=== PATIENT | female | born 1960 | race African-American/Black ===

== ENCOUNTER → 2018-08-10 | Outpatient (CLI) | payer MEDICAID ==
[~2018-08-10] MED LIST: ASPIRIN E.C. 8181 MG PO; ELIQUIS 5MG PO; FLONASE NASAL S16 GM NS; IPRATROPIUM BROM3 M1 IH; LASIX 20MG TABL20 MG PO; LOPRESSOR 225 MG/TAB PO; MACROBID 1100 MG/CAP PO; PRAVACHOL 20MG20 MG PO; PROAIR HFA0.09 MG/AC IH; PROTONIX 40MG T40 MG PO; PULMICORT180 MCG/Ac IH; ZYRTEC 10MG10 MG PO
== END ==
LOC: ZCOL.LAB 16:05
DX: N39.0 Urinary tract infection, site not specified (principal)

== ENCOUNTER 2018-08-13 18:00 | Inpatient (IN) | payer MEDICAID ==
[~2018-08-13] VITALS: Ht 154.9 cm; Wt 89.5 kg
[2018-08-13] MEDS ORDERED: FLONASE NASAL S16 GM NS (18:07)
[2018-08-13] MEDS ORDERED: MACROBID 1100 MG/CAP PO (18:07)
[2018-08-13] MEDS ORDERED: ZYRTEC 10MG10 MG PO (18:07)
[2018-08-13] MEDS ORDERED: PROTONIX 40MG T40 MG PO (18:08)
[2018-08-13] MEDS ORDERED: PROAIR HFA0.09 MG/AC IH (18:08)
[2018-08-13] MEDS ORDERED: IPRATROPIUM BROM3 M1 IH (18:08)
[2018-08-13] MEDS ORDERED: PULMICORT180 MCG/Ac IH (18:08)
[2018-08-13] MEDS ORDERED: LASIX 20MG TABL20 MG PO (18:09)
[2018-08-13] MEDS ORDERED: ELIQUIS 5MG PO (18:09)
[2018-08-13] MEDS ORDERED: PRAVACHOL 20MG20 MG PO (18:09)
[2018-08-13] MEDS ORDERED: LOPRESSOR 225 MG/TAB PO (18:09)
[2018-08-13] MEDS ORDERED: ASPIRIN E.C. 8181 MG PO (18:09)
[2018-08-13 18:55] LABS: BASO # 0.1 (0.0-0.2); BASO % 0.2 % (0.0-2.0); GRAN # 17.7 (1.4-6.5); GRAN % 87.4 % (42.2-75.2); HEMOGLOBIN 10.4 g/dl (12.5-16.0); LYMPH # 0.7 (1.2-3.4); LYMPH % 3.2 % (20.0-51.0); MEAN CELL VOLUME 83 fl (80.0-100.0); MEAN CORPUSCULAR HEMOGLOBIN 24 pg (27.0-31.0); MEAN CORPUSCULAR HGB CONC 29 g/dl (33.0-37.0); MEAN PLATELET VOLUME 10.5 fl (7.4-10.4); MONO # 1.7 (0.1-0.6); MONO % 8.3 % (1.7-9.3); PLATELET COUNT 349 K/mm3 (130-400); RED BLOOD COUNT 4.36 M/mm3 (4.10-5.30); REDCELL DISTRIBUTION WIDTH-CV 16.2 % (11.5-14.5)
[2018-08-13 18:58] LABS: COLLECTION METHOD CATHETER
[2018-08-13 19:01] LABS: HEMATOCRIT 36.1 % (37.0-47.0)
[2018-08-13 19:05] LABS: ALBUMIN 3.2 gm/dL (3.5-5.0); BILIRUBIN,TOTAL 1.6 mg/dL (0.0-1.0); CALCIUM 8.5 mg/dL (8.4-10.2); CREATININE, serum 0.67 mg/dL (0.52-1.25); POTASSIUM 4.5 mmol/L (3.4-5.0); TOTAL PROTEIN 7.2 gm/dL (6.4-8.2)
[2018-08-13 19:14] LABS: AMORPHOUS CRYSTAL Present /uL; HYALINE CAST >12 /lpf; MUCOUS Present /lpf; PH 5 (5-8); URINE APPEARANCE Cloudy; URINE BACTERIA None Seen /hpf; URINE BILIRUBIN Negative (NEGATIVE); URINE BLOOD Negative (NEGATIVE); URINE COLOR Amber; URINE GLUCOSE Negative (NEGATIVE); URINE KETONE Trace (NEGATIVE); URINE LEUKOCYTE ESTERASE Negative (NEGATIVE); URINE NITRATE Negative (NEGATIVE); URINE PROTEIN(semi-quant) 1+ (NEGATIVE); URINE RBC 0-2 /hpf; URINE UROBILINOGEN >=4.0 mg/dL (NEGATIVE)
--- NOTE | 2018-08-13 23:30 | NUR ---
pt arrived to unit. diaphoretic, reporting feeling hot. pt temp 97.7. pt med rec completed, michaela notified. pt lungs clear. assessment complete. IV flushes well. no needs a this time
[2018-08-14] VITALS (15 sets, daily range): BP systolic 87–132; BP diastolic 28–68; PULSE 73–97; TEMP 93.5–98
--- NOTE | 2018-08-14 05:03 | NUR ---
PT temp rectally 94.5. BP 87/28- Becca, CORE FILER notified. baerhugger, lactic acid, troponin, and warm LR ordered. pt temp now at 95.2 and BP at 108/38. will continue to monitor vitals and temp. no needs at this time. call light inreach
[2018-08-14 07:00] LABS: ARTERIAL BLD GAS O2 SATURATION 95.3 % (92-100); ARTERIAL BLOOD GAS BASE EXCESS 9.4 (-2-2); ARTERIAL BLOOD GAS HCO3 36.9 meq/L (22-26); ARTERIAL BLOOD GAS PO2 89.2 mmHg (80-100); ARTERIAL BLOOD GAS pH 7.35 (7.35-7.45)
--- NOTE | 2018-08-14 07:00 | NUR ---
Report received form EMIL Lucio. PT in bed resting, feeling weak, assisted tobathroom SBA. Will continue to monitor.
[2018-08-14 07:03] LABS: ARTERIAL BLOOD GAS PCO2 68.9 mmHg (35-45)
--- NOTE | 2018-08-14 07:08 | NUR ---
monitoring temp Q1H. and vitals Q30 min. notified NUTRITION SERVICES AIDE with results. Pt is now diaphoretic and reports feeling hot. rectal temp at this time 95.6. bairhugger on, warm blankets on, warm LR running. no needs at this time call light in reach.
--- NOTE | 2018-08-14 07:42 | NUR ---
report given to EMIL Wood
[2018-08-14 08:56] LABS: MEAN CELL VOLUME 85 fl (80.0-100.0); MEAN CORPUSCULAR HGB CONC 28 g/dl (33.0-37.0); MEAN PLATELET VOLUME 10.6 fl (7.4-10.4); PLATELET COUNT 379 K/mm3 (130-400); RED BLOOD COUNT 4.07 M/mm3 (4.10-5.30); REDCELL DISTRIBUTION WIDTH-CV 16.4 % (11.5-14.5)
[2018-08-14 09:05] LABS: HEMATOCRIT 34.4 % (37.0-47.0); HEMOGLOBIN 9.6 g/dl (12.5-16.0); MEAN CORPUSCULAR HEMOGLOBIN 24 pg (27.0-31.0)
[2018-08-14 09:11] LABS: BILIRUBIN,TOTAL 0.8 mg/dL (0.0-1.0); CALCIUM 8.5 mg/dL (8.4-10.2); CREATININE, serum 0.83 mg/dL (0.52-1.25); POTASSIUM 4.4 mmol/L (3.4-5.0); TOTAL PROTEIN 6.8 gm/dL (6.4-8.2)
--- NOTE | 2018-08-14 09:38 | NUR ---
Assessment charted. Pt's temp improved 97.4 rectally at 0800 removed rosaura clydegger at that time and will recheck shortly. BP labile, manual BP was 114/68, will continue to monitor. Pt receivign IVF and antibiotics through IV in [place]. Pt is alert and oriented, SBA d/t weakness and IV pole. PT is concerend about home meds, called and she addressed and I provided per orders. Pt doing well, denies pain. 02 at 3L NC, which is her baseline. Will continue to monitor.
[2018-08-14 09:40] LABS: TSH w REFLEX 0.403 uIU/mL (0.465-4.680)
--- NOTE | 2018-08-14 10:12 | NUR ---
ROLAN met with the patient to discuss a discharge plan. The patient lives in [place] with her daughter, Whit. The patient receives services through [employer] [facility]. The patient reports her daughter Whit is employed through [employer] as her helper. The patient receives her prescriptions from [facility] and reports no difficulties obtaining her medications. The patient plans to return home upon discharge. There are no additional needs at this time.
[2018-08-14 13:55] LABS: ANISOCYTOSIS 1+; BAND 19 % (0-10); LYMPHOCYTE 6 % (20.0-51.0); NEUTROPHILS 71 % (42.0-75.2); PLATELET ESTIMATE INCREASED (NORMAL)
--- NOTE | 2018-08-14 18:23 | NUR ---
Pt rested well today, sleeping off and on this afternoon. Taking PO well. Denies needs, temperature and BP stable, will give bedside shift report to nightshift nurse who will resume care.
--- NOTE | 2018-08-14 21:00 | NUR ---
pt resting in bed A+ox4. no pain no soa. no needs at this time. call light in reach
[2018-08-15] VITALS (8 sets, daily range): BP systolic 108–131; BP diastolic 35–49; PULSE 79–115; TEMP 97.6–100.1
--- NOTE | 2018-08-15 01:06 | NUR ---
assisted pt toilet. walked slow but stable. standby d/t O2 and IV. no needs at this time. call light inreach
--- NOTE | 2018-08-15 07:15 | NUR ---
Pt resting in bed with eyes closed, report received from EMIL Lucio. Will continue to monitor.
--- NOTE | 2018-08-15 07:20 | NUR ---
pt had an uneventful night. no pain. no soa. vitals stable. no needs at this time. call light in reach. report given to EMIL Wood
--- NOTE | 2018-08-15 08:00 | NUR ---
Assessment charted. Pt resting well today, up to bathroom with SBA. Urine yellow and clear. Short of breath but able to ambulate well, o2 at 3L NC per baseline. Fan on for breathing comfort. Eating and drinking well, feels stronger today. IVF to LA/C. Denies needs, will continue to monitor.
[2018-08-15 14:20] LABS: BASO % 0.1 % (0.0-2.0); EOS % 0.1 % (0-4.0); GRAN % 86.2 % (42.2-75.2); LYMPH # 0.7 (1.2-3.4); LYMPH % 4.1 % (20.0-51.0); MEAN CELL VOLUME 88 fl (80.0-100.0); MEAN CORPUSCULAR HGB CONC 27 g/dl (33.0-37.0); MEAN PLATELET VOLUME 10.2 fl (7.4-10.4); MONO # 1.4 (0.1-0.6); MONO % 8.4 % (1.7-9.3); PLATELET COUNT 368 K/mm3 (130-400); RED BLOOD COUNT 3.77 M/mm3 (4.10-5.30); REDCELL DISTRIBUTION WIDTH-CV 16.8 % (11.5-14.5)
[2018-08-15 14:25] LABS: HEMATOCRIT 33.3 % (37.0-47.0); HEMOGLOBIN 8.9 g/dl (12.5-16.0); MEAN CORPUSCULAR HEMOGLOBIN 24 pg (27.0-31.0)
[2018-08-15 14:35] LABS: CALCIUM 8.2 mg/dL (8.4-10.2); CREATININE, serum 0.63 mg/dL (0.52-1.25); POTASSIUM 3.9 mmol/L (3.4-5.0)
--- NOTE | 2018-08-15 17:38 | NUR ---
Pt resting in bed with 02 at 3L NC. Earlier this afternoon, during RT treatment RT concerned for increased work of breathing and decreased saturations on 3L NC. Called Dr. Astudillo and updated, orders received and implemented, pt resting in bed with eyes closed and appears comfortable. Pt prefers to lay on stomach in bed. IV antibiotics infusing. Denies needs, will give bedside shift report to nightshift nurse who will resume care.
--- NOTE | 2018-08-15 20:29 | NUR ---
Assessment complete.patient awake,alert and oriented x3.denies pain or discomfort at this time.breathing even and unlabored.Lung sounds diminished throughout.Oxygen at 3L/nc.IV Antibiotics infusing.patient denies any needs at this time.will continue to monitor.call light in reach
--- NOTE | 2018-08-15 22:22 | NUR ---
Pt resting in bed at this time.denies any needs at this time.Antibiotics infusing.remains in droplet prec for RVP pending.call light in reach
--- NOTE | 2018-08-16 02:02 | NUR ---
pt's linen change d/t incontinence.education provided on using the call light.pt breathing lsbored with exertion.no other concerns voiced at this time.
[2018-08-16 04:52] VITALS: BP 108/51; PULSE 60; TEMP 97.8
[2018-08-16 04:55] VITALS: BP 90/74; PULSE 108; TEMP 99.6
--- NOTE | 2018-08-16 06:27 | NUR ---
PT C/O SOA.RESPIRATORY THERAPY ADMINISTERED TX AND PATIENT REPORTS FEELING BETTER.PATIENT REMAINS TACHYCARDIC IN THE 100-110s.OXYGEN AT 3L/NC.IVF INFUSING.DENIES ANY OTHER NEEDS AT THIS TIME.CALL LIGHT IN REACH
[2018-08-16 07:48] LABS: MEAN CELL VOLUME 86 fl (80.0-100.0); MEAN CORPUSCULAR HGB CONC 27 g/dl (33.0-37.0); MEAN PLATELET VOLUME 10.3 fl (7.4-10.4); PLATELET COUNT 372 K/mm3 (130-400); RED BLOOD COUNT 3.52 M/mm3 (4.10-5.30); REDCELL DISTRIBUTION WIDTH-CV 17.2 % (11.5-14.5)
[2018-08-16 07:49] LABS: HEMATOCRIT 30.3 % (37.0-47.0); HEMOGLOBIN 8.2 g/dl (12.5-16.0); MEAN CORPUSCULAR HEMOGLOBIN 23 pg (27.0-31.0)
[2018-08-16 07:53] LABS: CALCIUM 7.9 mg/dL (8.4-10.2); CREATININE, serum 0.67 mg/dL (0.52-1.25); POTASSIUM 3.7 mmol/L (3.4-5.0)
[2018-08-16 08:03] VITALS: BP 93/32; PULSE 119; TEMP 100.7; TEMP 98.8
--- NOTE | 2018-08-16 08:30 | NUR ---
Assessment complete. Pt is drowsy but arrousable to voice. Denies having any pain at this time. Breathing is even and unlabored on 3L via NC. Tele on. LF INT flushes easily, remains free of complications, and is CDI. Pt is resting quietly in the bed at this time and she denies further needs. Call light within reach, will continue to monitor.
[2018-08-16 11:36] VITALS: BP 104/32; PULSE 100; TEMP 101.2
[2018-08-16 11:48] LABS: BAND 32 % (0-10); LYMPHOCYTE 5 % (20.0-51.0); NEUTROPHILS 59 % (42.0-75.2)
[2018-08-16 11:49] LABS: ANISOCYTOSIS 1+; HYPOCHROMIA 1+; PLATELET ESTIMATE NORMAL (NORMAL)
[2018-08-16 16:14] VITALS: BP 104/41; PULSE 101; TEMP 100.8
--- NOTE | 2018-08-16 18:27 | NUR ---
Pt has been resting on and off throughout the day. She has remained free of pain. Pt's daughter has been at the bedside; all questions answered. Pt is resting quietly in the bed at this time and she denies further needs. Call light within reach.
[2018-08-16 19:23] LABS: COLLECTION METHOD CATHETER
--- NOTE | 2018-08-16 19:25 | NUR ---
Report given to EMIL Jaramillo.
[2018-08-16 19:35] LABS: AMORPHOUS CRYSTAL Present /uL; PH 5 (5-8); SQUAMOUS EPITHELIAL 0-2 /hpf; URINE APPEARANCE Hazy; URINE BACTERIA None Seen /hpf; URINE BILIRUBIN Negative (NEGATIVE); URINE BLOOD 1+ (NEGATIVE); URINE COLOR Yellow; URINE GLUCOSE Negative (NEGATIVE); URINE KETONE Negative (NEGATIVE); URINE LEUKOCYTE ESTERASE Negative (NEGATIVE); URINE NITRATE Negative (NEGATIVE); URINE PROTEIN(semi-quant) 1+ (NEGATIVE)
[2018-08-16 20:30] VITALS: BP 103/41; PULSE 100; TEMP 98.7
[2018-08-17] VITALS (10 sets, daily range): BP systolic 107–121; BP diastolic 39–444; PULSE 83–106; TEMP 97.5–99.7
--- NOTE | 2018-08-17 04:16 | NUR ---
PT HAS BEEN INCONTINENT OF URINE THIS NOC. PT HASNT BEEN CALLING FOR ASSISTANCE TO GET UP TO VOID AND HASNT CALLED WHEN INCONTINENT. PT HAS ASKED TO BE TURNED DURING THE NOC AND THIS NURSE HAS SEEN THAT PT WAS INCONTINENT AND ASSITED PT TO GET CHANGED. PT HAS HELPED SOME IN ROLLING IN BED BUT HAS SAID " I CANT" MOVE WHEN ASKED TO MOVE OR TO TURN IN BED MOST OF THE TIME. NO C/O PAIN THIS SHIFT. ONLY ATE A FEW THINGS OF FRUIT FOR SUPPER.
--- NOTE | 2018-08-17 06:19 | NUR ---
PT DID CALL TO GO TO BATHROOM THIS AM. STAFF WAS BUSY FOR APPROX 15 MINS BEFORE AVALIBLE ASSIST PT. WHEN STAFF WENT TO ASSIST PT, PT WAS ALREADY INCONINTENT OF URINE. ASSISTED PT TO CHANGE BRIEF AND GET REPOSITONED. NO OTHER ISSUES OR CONSERNS VOICED AT THIS TIME.
[2018-08-17 06:29] LABS: MEAN CELL VOLUME 86 fl (80.0-100.0); MEAN CORPUSCULAR HGB CONC 28 g/dl (33.0-37.0); MEAN PLATELET VOLUME 9.7 fl (7.4-10.4); PLATELET COUNT 308 K/mm3 (130-400); RED BLOOD COUNT 3.24 M/mm3 (4.10-5.30); REDCELL DISTRIBUTION WIDTH-CV 17.2 % (11.5-14.5)
[2018-08-17 06:40] LABS: HEMATOCRIT 27.8 % (37.0-47.0); HEMOGLOBIN 7.8 g/dl (12.5-16.0); MEAN CORPUSCULAR HEMOGLOBIN 24 pg (27.0-31.0)
[2018-08-17 06:43] LABS: CALCIUM 7.8 mg/dL (8.4-10.2); CREATININE, serum 0.98 mg/dL (0.52-1.25); POTASSIUM 3.8 mmol/L (3.4-5.0)
--- NOTE | 2018-08-17 07:00 | NUR ---
Report on to EMIL Soto
--- NOTE | 2018-08-17 07:45 | NUR ---
pt resting upon entry. recieving breathing treatment with respiratory therapy. O2 via NC increased from 3L/NC to 4L/NC. respirations diminished peripheral [place]. No SOB noted at rest. INT right AC intact without redness. c/o back pain 08/01. pt repositioned and no further complaints. Fauzia, Student SCALER PACKER
--- NOTE | 2018-08-17 07:58 | NUR ---
report received from EMIL Jaramillo.patient resting in bed.IVF infusing.denies needs at this time.Fauzia-Student Nurse will be assisting this RN with patient cares today.call light in reach
--- NOTE | 2018-08-17 09:00 | NUR ---
Assessment complete.patient resting in bed.a/ox3.denies pain at this time.breathing labored with exertion.Oxygen at 3L/nc.IVF infusing.patient to have laproscopic procedure to drain abcess to abd today.patient aware of procedure.encouraged pt to ask for assistance.no needs voiced at this time.call light in reach
[2018-08-17 09:14] LABS: BAND 32 % (0-10); HYPOCHROMIA 2+; LYMPHOCYTE 9 % (20.0-51.0); NEUTROPHILS 52 % (42.0-75.2); PLATELET ESTIMATE NORMAL (NORMAL)
--- NOTE | 2018-08-17 10:00 | NUR ---
NPO status initiated as ordered Fauzia, Student LARRY
--- NOTE | 2018-08-17 11:00 | NUR ---
pt resting comfortably in bed. no c/o pain. no changes with initial assessment Fauzia Student LARRY
--- NOTE | 2018-08-17 11:12 | NUR ---
SW attended clinical rounds. Patient will have surgery today. Patient will also be seen by PT/OT to see if home health is recommended. ROLAN met with patient and her daughter, Whit, to complete DPOA form. Patient signed, SW and NCM witnessed signature and provided copies. Whit reports patient will have a services through [facility] once she is discharged. ROLAN reports if patient needs home health PT/OT, SW can help arrange those services.
--- NOTE | 2018-08-17 14:56 | NUR ---
pt taken to operating Room at this time.consent signed.LR infusing.family at bedside.denies any needs at this time.call light in reach
--- NOTE | 2018-08-17 17:37 | NUR ---
PT RETURNED TO ROOM FROM OR,A/O.VSS.DENIES PAIN OR DISCOMFORT.POST OP VITALS STARTED.DRAIN TO ABD.CDI INCISIONS.WILL CONTINUE TO MONITOR
--- NOTE | 2018-08-17 18:10 | NUR ---
Patient resting in bed at this time.denies pain or discomfort.IVF infusing.incisions to abd CDI.bandaids to lower and mid abd.gauze drsg to mid abd-drain in place.out is serousanguinos.75ml output-documented.no other needs voiced at this time.family at bedside.VSS.call light in reach
--- NOTE | 2018-08-17 19:54 | NUR ---
report given to EMIL Carias
--- NOTE | 2018-08-17 20:01 | NUR ---
Pt resting in bed, started IV antibiotics. Evening medications administered. Pt c/o 10/01 abomdinal pain near drain site. Given 1 tab of NORCO which has provided some relief. LUng sounds clear, abdominal sounds active, pules +2. Drain emptied during shift change by EMIL Soto, will continue ot monitor for output. No further needs at this time.
[2018-08-18] VITALS (8 sets, daily range): BP systolic 79–129; BP diastolic 35–57; PULSE 80–95; TEMP 97.5–98.4
--- NOTE | 2018-08-18 00:40 | NUR ---
Low BP noted on vitals. This nurse went into do manual BP, BP slighlty improved with SBP in 90's. Will contineu to monitor.
--- NOTE | 2018-08-18 04:41 | NUR ---
Attempted to start a new IV on patient, unable to find a new IV site, pt does not want several attempts of an IV and states, "this one works just fine". Will pass on to day shift that if pt is agreeable, will need new IV.
--- NOTE | 2018-08-18 05:02 | NUR ---
Pt slept for most of the night. Pain medication given in the eveing- relieved pain. Drain emptied once with 45 mls serosanguinous drainage. Incontinent x1. Used bsc second time. IV antibiotics adminsitered. One low BP recorded around midnight, 0400 vitals BP back up to normal. Unable to start new IV site. Pt has no other needs at this time.
[2018-08-18 06:42] LABS: MEAN CELL VOLUME 89 fl (80.0-100.0); MEAN CORPUSCULAR HGB CONC 26 g/dl (33.0-37.0); MEAN PLATELET VOLUME 9.9 fl (7.4-10.4); PLATELET COUNT 350 K/mm3 (130-400); REDCELL DISTRIBUTION WIDTH-CV 17.6 % (11.5-14.5)
[2018-08-18 06:44] LABS: HEMATOCRIT 30.4 % (37.0-47.0); MEAN CORPUSCULAR HEMOGLOBIN 24 pg (27.0-31.0)
[2018-08-18 06:54] LABS: CALCIUM 7.7 mg/dL (8.4-10.2); CREATININE, serum 1.76 mg/dL (0.52-1.25); POTASSIUM 4.1 mmol/L (3.4-5.0)
--- NOTE | 2018-08-18 07:00 | NUR ---
Report on to EMIL Soto, student CONCIERGE MANAGER
--- NOTE | 2018-08-18 07:13 | NUR ---
Report given to EMIL heck.
--- NOTE | 2018-08-18 07:15 | NUR ---
REPORT RECEIVED FROM EMIL DE LA GARZA.[facility]
--- NOTE | 2018-08-18 07:30 | NUR ---
Assessment as charted. diminished lung sounds. crackles in peripheral lobes. O2 at 3L/NC. No SOB at rest. pain on sacrum with redness. repositioned and notified EMIL Soto. no further complaints of pain after repositioning. INT intact RAC with no redness. call light within reach, 3 of 4 side rails up, bed in lowest position. Fauzia, student ENGRAVER TIRE MOLD
--- NOTE | 2018-08-18 09:16 | NUR ---
Fauzia-student nurse assisting with patient cares for part of this shift.
[2018-08-18 09:18] LABS: BAND 38 % (0-10); LYMPHOCYTE 4 % (20.0-51.0); NEUTROPHILS 51 % (42.0-75.2)
[2018-08-18 09:19] LABS: PLATELET ESTIMATE NORMAL (NORMAL)
[2018-08-18 09:20] LABS: EOSINOPHIL 1 % (0-4)
--- NOTE | 2018-08-18 09:45 | NUR ---
incontinent of bladder, incontinent care provided. assisted with transfer to bedside commode. Fauzia, student LARRY
--- NOTE | 2018-08-18 11:30 | NUR ---
pt resting comfortably in recliner, BP 106/47 Brittany, RN notified, call light within reach. No c/o pain. Fauzia, student EGG CRATER
--- NOTE | 2018-08-18 12:00 | NUR ---
This RN reviewed Fauzia-student nurse documentation and agrees with findings.patient resting in bed at this time.oxygen at 3L/nc.breathing even and unlabored.VORB order received from for abcess drainage culture.order completed.Kristel notified.patient's dressing to mid abdomen soiled.This RN and Fauzia changed dressing.Output drom CRIS drain documented.patient ambulated with physical therapy.IVF infusing at this time.denies further needs at this time.call light in reach
--- NOTE | 2018-08-18 12:00 | NUR ---
new dressing applied to RUQ CRIS drain. serousangeous drainage on old dressing. no redness noted to CRIS site. no pain or tenderness upon palpation. pt tolerated procedure well.
--- NOTE | 2018-08-18 14:45 | NUR ---
ROLAN attended clinical rounds. It has been recommended that patient go to a SNF after discharge. SW reported to family that she will do reseach and find out which facilities would accept patient's insurance. ROLAN then met with patient and her daughter/DPOA, Whit, about SNF choices. Patient would like SW to fax a referral to her first choice, [facility]. Whit also reported SW can fax referral to [facility] in [place] and [facility] in [place]. Whit signed choice form. ROLAN will fax referrals to all three choices.
--- NOTE | 2018-08-18 15:00 | NUR ---
pt resting in bed.sleeping.denies any pain at this time.
--- NOTE | 2018-08-18 18:10 | NUR ---
pt resting in bed at this time.breathing even and unlabored.IVF infusing.CRIS drain output documented.no odor noted.serosanguineous.no needs voiced at this time.call light in reach
--- NOTE | 2018-08-18 19:20 | NUR ---
report given to EMIL Francis
--- NOTE | 2018-08-18 20:03 | NUR ---
PT'S GRANDDAUGHTER UPSET BECAUSE SHE STATED THAT THERE WAS NO CALL LIGHT OR PHONE NEXT TO PT, THEREFORE, SHE DID NOT ORDER SUPPER.
--- NOTE | 2018-08-18 20:35 | NUR ---
PT IN BED WITH HOB ELEVATED TO 45 DEGREE ANGLE. PT A/O X4, PT REFUSES TO GET OFF OF LEFT SIDE AND STATES THAT SHE CANNOT LAY ON FLAT OR ON BACK. PT WAS GIVEN SANDWICH BOX AND HAS NOT EATEN VERY MUCH SO FAR. PT DENIES PAIN OR DISCOMFORT. PT WAS INCONTINENT OF URINE AND WAS CHANGED. PT HAS CALL LIGHT AND PHONE IN REACH.
[2018-08-19] VITALS (10 sets, daily range): BP systolic 75–142; BP diastolic 30–106; PULSE 74–91; TEMP 97.5–98.8
--- NOTE | 2018-08-19 00:18 | NUR ---
CALLED SARAH HUERTA IN REFERENCE TO PT'S BP.
--- NOTE | 2018-08-19 01:20 | NUR ---
16 LITHUANIAN DANG CATHETER PLACED, WITH 10CC OF STERILE WATER, URINE RETURN, YELLOW AND CLEAR. STERILE TECHNIQUE USED.
[2018-08-19 01:22] LABS: MEAN CELL VOLUME 90 fl (80.0-100.0); MEAN CORPUSCULAR HGB CONC 27 g/dl (33.0-37.0); MEAN PLATELET VOLUME 9.5 fl (7.4-10.4); PLATELET COUNT 339 K/mm3 (130-400); RED BLOOD COUNT 3.22 M/mm3 (4.10-5.30); REDCELL DISTRIBUTION WIDTH-CV 17.4 % (11.5-14.5)
[2018-08-19 01:23] LABS: HEMATOCRIT 28.9 % (37.0-47.0); HEMOGLOBIN 7.7 g/dl (12.5-16.0); MEAN CORPUSCULAR HEMOGLOBIN 24 pg (27.0-31.0)
[2018-08-19 01:31] LABS: ALBUMIN 2.1 gm/dL (3.5-5.0); BILIRUBIN,TOTAL 0.2 mg/dL (0.0-1.0); CALCIUM 7.2 mg/dL (8.4-10.2); TOTAL PROTEIN 4.8 gm/dL (6.4-8.2)
[2018-08-19 01:44] LABS: BAND 19 % (0-10); EOSINOPHIL 1 % (0-4); LYMPHOCYTE 20 % (20.0-51.0); NEUTROPHILS 56 % (42.0-75.2); PLATELET ESTIMATE NORMAL (NORMAL)
[2018-08-19 01:45] LABS: ANISOCYTOSIS 1+; HYPOCHROMIA 3+; TEAR DROP CELLS 1+
--- NOTE | 2018-08-19 01:45 | NUR ---
PT'S CRIS BULB DRAINED WITH 65ML IN BULB, AND DRAINAGE WAS THICK MUCUSY WHITE WITH BLACK THIN LIQUID.
[2018-08-19 01:46] LABS: SCHISTOCYTES 1+
[2018-08-19 01:47] LABS: STOMATOCYTE 2+
--- NOTE | 2018-08-19 06:46 | NUR ---
PT HAS BEEN SLEEPING/RESTING WELL AFTER DANG WAS PLACED. PT DENIED ANYMORE PAIN OR DISCOMFORT. PT WANTS TO SLEEP ONLY ON HER RIGHT SIDE. PT ADVISED THAT SHE NEVER GOES ON HER BACK OR TO THE LEFT SIDE. PT HAS NO NEEDS, CALL LIGHT WITHIN REACH.
--- NOTE | 2018-08-19 07:00 | NUR ---
received report from EMIL Francis.patient laying in bed.slightly lethargic.IVF infusing.Luzma-student nurse assisting with patient cares today.
--- NOTE | 2018-08-19 09:21 | NUR ---
SW attended clinical rounds. Patient reports feeling tired this morning. Dr Lowery plan to remove the abdominal drain tomorrow. ROLNA is waiting to here from [facility] on if they will accept patient.
[2018-08-19 10:00] LABS: COLLECTION METHOD CATHETER
[2018-08-19 10:14] LABS: CREATININE, serum 2.04 (0.52-1.25)
[2018-08-19 10:15] LABS: CREATININE, serum 2.04 (0.52-1.25)
[2018-08-19 10:23] LABS: FRACTIONAL EXCRETION OF NA+ 1.5 %
--- NOTE | 2018-08-19 10:30 | NUR ---
CRIS drain emptied, 80ml of brown drainage with several small clumps of purulent drainage. Will continue to drain with bulb suction. S Curtis, SN
[2018-08-19 10:43] LABS: AMORPHOUS CRYSTAL Present /uL; PH 5 (5-8); SQUAMOUS EPITHELIAL 0-2 /hpf; URINE APPEARANCE Hazy; URINE BACTERIA Rare /hpf; URINE BILIRUBIN Negative (NEGATIVE); URINE BLOOD 1+ (NEGATIVE); URINE COLOR Yellow; URINE GLUCOSE Negative (NEGATIVE); URINE KETONE Negative (NEGATIVE); URINE LEUKOCYTE ESTERASE Negative (NEGATIVE); URINE NITRATE Negative (NEGATIVE); URINE PROTEIN(semi-quant) 1+ (NEGATIVE); URINE UROBILINOGEN Negative (NEGATIVE)
--- NOTE | 2018-08-19 13:45 | NUR ---
Primary nurse was assisted with [phone] patient care by [facility] [employer] student Luzma Acevedo and [employer] [employer] [facility] instructor Lucina Costa RN-.
--- NOTE | 2018-08-19 18:33 | NUR ---
THIS RN WORKED CLOSELY WITH LAKESIDE-STUDENT NURSE AND AGREES WITH FINDINGS.
--- NOTE | 2018-08-19 18:34 | NUR ---
DRESSING TO ABD CHANGED.IV STARTED TO R HAND.IVF INFUSING.VSS.SCDS TO BLE.DANG CATHETER IN PLACE AND DRAINING ADEQUATELY.OXYGEN AT 3L/NC.PT REPOSITIONED FREQUENTLY THROUGHOUT SHIFT.DRAINAGE FROM CRIS IS DARK BROWN.PT DENIES PAIN.WILL CONTINUE TO MONITOR.CALL LIGHT IN REACH
--- NOTE | 2018-08-19 19:00 | NUR ---
WHEN CHANGING SHIFTS, DAY NURSE TRIED TO PUT THE IV FLUIDS BACK ON AND PT WAS COMPLAINING THAT IT HURTED AND THAT SHE DID NOT WANT IT. DAY NURSE HAD CHANGED IV TO LEFT HAND ALREADY AND IT WAS A NEW IV. PT REFUSED THE IV FLUIDS AND DID NOT WANT IT ON. THEREFORE, LEFT IV FLUIDS OFF PT.
--- NOTE | 2018-08-19 19:20 | NUR ---
REPORT GIVEN TO EMIL SELBY
--- NOTE | 2018-08-19 20:00 | NUR ---
PT WAS ON LEFT SIDE, CALL LIGHT AND PHONE NEXT TO PT IN BED. PT ALSO, HAD A FULL TRAY FOR SUPPER THAT SHE DID NOT EAT. REPOSITIONED PT TO RIGHT SIDE, MOVED UP X4 IN BED. PT STILL NOT COMFORTABLE. TRIED TO MOVE OFF RIGHT SIDE, BECAUSE PT HAD C/O NOT COMFORTABLE ON RIGHT SIDE. PT DID NOT WANT TO GO TO BACK OR MOVE FROM POSITION, BUT WANTED TO BE COMFORTABLE. TRIED TO MOVE HER A LITTLE TO HELP HER FEEL BETTER. ADVISED PT WE CAN TRY TYLENOL FOR PAIN BUT C/O THAT SHE DID NOT THINK IT WOULD HELP HER. PT FINALLY AGREED TO TRY THE TYLENOL. THEREFORE, GAVE HER TYLENOL FOR PAIN. PT RANG HER LIGHT SEVERAL TIMES MORE ABOUT EVERY 5 TO 10 MINUTES. WENT IN ROOM RIGHT AWAY AND TRIED TO HELP, BUT SHE WAS COMPLAINING THAT SHE WAS NOT COMFORT ABLE, TRIED TO HELP HER AGAIN WITH NO SUCCESS. DEEPTI STEIN WENT INTO HELP HER AT DIFFERENT TIMES WELL WITH NO SUCCESS, ALSO, THAI STEINAFTER SCHOOL COUNSELOR NURSE WENT IN THERE AND SHE WAS NOT ABLE TO SATISFY PT EITHER. EACH TIME LEFT ROOM, MADE SURE CALL LIGHT, PHONE, AND PERSONAL PHONE WAS IN REACH. ALSO, MADE SURE PT WAS AWARE OF WHERE CALL LIGHT, PHONE, AND PERSONAL PHONE WAS AT.
--- NOTE | 2018-08-19 20:55 | NUR ---
PT HAD RANG HER LIGHT AGAIN. WENT INTO THE ROOM AND ASKED WHAT SHE NEEDED. PT ADVISED THAT SOMEONE CAME INTO THE ROOM AND THROUGH A PAPER DOWN AND LEFT. I ADVISED HER THAT I DID NOT SEE ANYONE COME INTO HER ROOM AND IF THIS WAS SO WHERE IS THE PAPER THEY THROUGH DOWN? PT WAS NO ABLE TO TELL ME WHERE THE PAPER WAS PUT. ALSO, PT ASKED ABOUT HER NIGHT TIME MEDICATIONS. ADVISED PT THAT IT WAS ALREADY GIVEN TO HER. PT DID NOT REMEMBER EVER GETTING HER NIGHT TIME MEDICATIONS. CALL LIGHT WITHIN REACH.
--- NOTE | 2018-08-19 22:00 | NUR ---
CALLED PT'S DAUGHTER YOANA, WHO VERIFIED PASSCODE. DAUGHTER YOANA, HAD FACED TIMED HER MOTHER AND THOUGHT THAT HER MOTHER'S FACE HAD A FACIAL DROOP AND POSSIBLE STROKE, BECAUSE HER MOTHER WAS HOLLERING AND YELLING AT HER. DAUGHTER YOANA STATED THAT THIS IS NOT HOW HER MOTHER NORMALLY ACTS. ADVISED DAUGHTER WOULD GO IN ROOM AND ASSESS HER MOTHER. ADVISED SARAH HUERTA BECAUSE SHE WAS AT NURSES' STATION, OF DAUGHTER'S CONCERN ABOUT A STROKE. SARAH HUERTA AND MYSELF WENT INTO THE ROOM AND ASSESSED PT FOR A STROKE. PT WAS NEGATIVE FOR A STROKE, BUT WILL CONTINUE TO MONITOR. CALLED DELORES LEES BACK AND ADVISED HER OF OUR FINDINGS AND THAT WE WILL MONITOR HER THROUGHOUT THE NIGHT. ALSO IF ANY PROBLEMS WILL CALL HER THONG. PT WAS GIVEN NORCO FOR PAIN.
--- NOTE | 2018-08-19 23:30 | NUR ---
PT SLEEP/RESTING WITH NO S/S OF PAIN OR DISCOMFORT. CALL LIGHT, PHONE, AND PERSONAL PHONE WITHIN REACH.
--- NOTE | 2018-08-20 00:15 | NUR ---
PT AWAKEN BRIEFLY. ASKED IF SHE HAD ANY PAIN AND SHE ADVISED, "NO." PT DRIFTED BACK TO SLEEP. PT HAS CALL LIGHT, PHONE, AND PERSONAL PHONE WITHIN REACH.
[2018-08-20 01:11] VITALS: BP 110/38; PULSE 68; TEMP 97.3
[2018-08-20 02:50] VITALS: BP 100/44
--- NOTE | 2018-08-20 02:51 | NUR ---
PT SLEEPING/RESTING ON RIGHT SIDE AND HOB ELEVATED TO 45 DEGREE ANGLE. PT SOFTLY SNORING, RESP EVEN AND UNLABORED WITH NO S/S OF PAIN OR DISCOMFORT NOTED. CALL LIGHT WITHIN REACH.
--- NOTE | 2018-08-20 06:15 | NUR ---
PT OFFERED WATER AND REPOSITIONING, BUT PT DECLINED. PT DENIED PAIN OR DISCOMFORT. CALL LIGHT, PHONE, AND PERSONAL PHONE STILL WITHIN REACH.
[2018-08-20 07:16] LABS: MEAN CELL VOLUME 91 fl (80.0-100.0); MEAN CORPUSCULAR HGB CONC 26 g/dl (33.0-37.0); MEAN PLATELET VOLUME 9.7 fl (7.4-10.4); PLATELET COUNT 310 K/mm3 (130-400); RED BLOOD COUNT 3.26 M/mm3 (4.10-5.30); REDCELL DISTRIBUTION WIDTH-CV 17.5 % (11.5-14.5)
[2018-08-20 07:32] LABS: CALCIUM 7.4 mg/dL (8.4-10.2); CREATININE, serum 2.36 (0.52-1.25); POTASSIUM 4.5 mmol/L (3.4-5.0)
[2018-08-20 07:43] LABS: HEMATOCRIT 29.7 % (37.0-47.0); HEMOGLOBIN 7.7 g/dl (12.5-16.0); MEAN CORPUSCULAR HEMOGLOBIN 24 pg (27.0-31.0)
[2018-08-20 07:56] VITALS: BP 116/41; PULSE 78; TEMP 97.9
--- NOTE | 2018-08-20 08:00 | NUR ---
Assessment completed and charted. Patient A&O, drowsy, can be easily awakened, but falls back to sleep, has intermittent confusion. Easily oriented. VS WNL. 2L NC O2, no report SOB. IV RT hand CDI, fluids infusing. Incisions/lap sites abdomen, CDI, bandaid applied. CRIS drain mid abdomen, drainage, dressing changed by nurse. Gauze and hypafex applied. Bulb suction with brown drainage. Patient complaining of lower left back and hip pain, does not want to lay on left side or back. Nursing staff repositioned patient on right side. Dominique to dependent drainage, clear yellow. No further needs expressed from patient, call light, personal cell phone and hospital phone within reach.
[2018-08-20 11:05] LABS: BAND 23 % (0-10); EOSINOPHIL 1 % (0-4); HYPOCHROMIA 2+; LYMPHOCYTE 9 % (20.0-51.0); NEUTROPHILS 62 % (42.0-75.2); PLATELET ESTIMATE INCREASED (NORMAL)
[2018-08-20 11:21] VITALS: BP 104/42; PULSE 78; TEMP 98.1
--- NOTE | 2018-08-20 12:01 | NUR ---
ROLAN spoke with Thomas at [facility] about referral. Thomas reports they are not able to verify patient's payer source. ROLAN contacted Lakia, financial counselor, and she was able to verify patient's Medicaid. ROLAN faxed this information to [facility]. Thomas will contact ROLAN later today after reviewing patient's referral. ROLAN also contacted [facility] about referral. ROLAN left message with Nhung, copy coordinator.
--- NOTE | 2018-08-20 13:12 | NUR ---
appears to be dozing, bedside shift report received from EMIL Christensen
--- NOTE | 2018-08-20 13:30 | NUR ---
appears toa be sleeping, awakened and CHIEF INFORMATION OFFICER attempted to get her to eat, only took a couple of bites and then refused, when first asked her date of she just stared blankly, then when asked again was able to give her date or , continued to refuse to eat, shift assessment completed see intervention for further info, she is lying on her right side and that is where she stays, CRIS drain with small amount dark greenish c olored liquid in bulb and tubing, dressing has scant amount drainage, goes back to sleep quickly
--- NOTE | 2018-08-20 13:33 | NUR ---
Patient laying in bed, intermittent confusion and sleeping off and on. VS stable. 3L NC O2, no report SOB. IV CDI, fluids infusing. CRIS drain abdomen, CRIS drain to suction. Nursing staff assisting patient with eating. Dominique to dependent drainage, clear yellow. No further needs expressed from patient. Call light, cell phone, and hospital phone within reach
--- NOTE | 2018-08-20 14:30 | NUR ---
daughter called nurse to room and was concerned the that her mother's left side of face was drooping, I see it as symmetrical, she is able to smile and stick out her tongue and all is symmetrical, patient is more awake now and visiting with daughter and is oriented to this,
[2018-08-20 15:16] VITALS: BP 106/36; PULSE 78; TEMP 97.4
--- NOTE | 2018-08-20 15:49 | NUR ---
awakened and takes a sip of ensure, denies pain or other needs
--- NOTE | 2018-08-20 16:35 | NUR ---
radiology in to complete chest xray, she is uncooperative but with assitance was able to roll her to her back and xray obtained, then repositioned back to right side, dressing around drain site with mod amount drainage,
--- NOTE | 2018-08-20 18:45 | NUR ---
bedside shift report given to EMIL Lucio, dressing to lucinda drain site with large amount drainage, new drain sponges and ABD dressing placed,
[2018-08-20 21:57] VITALS: BP 120/42; PULSE 77; TEMP 98.3
--- NOTE | 2018-08-20 22:04 | NUR ---
PT resting A+ox4. pt drowsy. IV in right hand, flsuhes well. abd dressing DCI. CRIS drain compressed. diaz draining freely, no kinks. no needs at this time call light inreach. bed alarm on. shift assessment complete.
--- NOTE | 2018-08-20 23:07 | NUR ---
PT a+OX4 reports pain- prn tylenol given. pt brief dry. Dominique draining freely, no kinks. no neeeds at this time. call light in reach. bed alarm on
[2018-08-21] VITALS (7 sets, daily range): BP systolic 103–151; BP diastolic 32–62; PULSE 73–81; TEMP 97.5–98.4
--- NOTE | 2018-08-21 00:21 | NUR ---
pt o2 sat 99% on 3L- decreased O2 to 2L will continue to monitor.
--- NOTE | 2018-08-21 00:30 | NUR ---
pt refused to be turned. pt on right side. reports no needs. pt sleeping
--- NOTE | 2018-08-21 05:59 | NUR ---
pt CRIS drain has had no output during night. dressing saturated x2. last saturation was within an hour- DR. Montano notified. diaz draining freely, no kinks. adequate output throughout night- blood noted in brief when changing. Allision notified. will continue to monitor. pt reports pain in right shoulder- refused to turn to other side d/t difficulty breathing when sleeping on back or left side. pt requested bedpan, pt had a medium loose stool. IV flushing well in right hand. pt requested SCD off at this time. no needs at this time. call light in reach. bed alarm on.
[2018-08-21 06:35] LABS: MEAN CELL VOLUME 89 fl (80.0-100.0); MEAN CORPUSCULAR HGB CONC 27 g/dl (33.0-37.0); MEAN PLATELET VOLUME 9.3 fl (7.4-10.4); PLATELET COUNT 260 K/mm3 (130-400); RED BLOOD COUNT 3.06 M/mm3 (4.10-5.30); REDCELL DISTRIBUTION WIDTH-CV 17.4 % (11.5-14.5)
[2018-08-21 06:37] LABS: HEMATOCRIT 27.1 % (37.0-47.0); HEMOGLOBIN 7.3 g/dl (12.5-16.0); MEAN CORPUSCULAR HEMOGLOBIN 24 pg (27.0-31.0)
[2018-08-21 06:45] LABS: CALCIUM 7.6 mg/dL (8.4-10.2); CREATININE, serum 2.3 (0.52-1.25)
[2018-08-21 06:53] LABS: POTASSIUM 4.2 mmol/L (3.4-5.0)
--- NOTE | 2018-08-21 07:07 | NUR ---
report given to EMIL Reynolds. pt sleeping at this time
[2018-08-21 07:40] LABS: ANISOCYTOSIS 1+; BAND 10 % (0-10); LYMPHOCYTE 8 % (20.0-51.0); METAMYELOCYTE 2 % (0-0); NEUTROPHILS 77 % (42.0-75.2); PLATELET ESTIMATE NORMAL (NORMAL)
[2018-08-21 07:41] LABS: HYPOCHROMIA 1+
--- NOTE | 2018-08-21 09:00 | NUR ---
PATIENT ASSESSMENT COMPLETED. SHE IS UNCOMFORTABLE IN THE BED REPOSITIONED. SHE IS STILL NOT COMFORTABLE AND SHE IS ASSISTED TO THE RECLINER. SHE DOES TOLERATE WELL, GETS A LITTLE SHORT OF BREATH BUT RECOVERS WELL. LUNGS SOUNDS ARE DIMINISHED. SHE IS ALSO HAVING SOME BLOOD AROUND THE DANG INSERTION AREA. SHE DENIES IT BEING PAINFUL OR ACCIDENTLY GETTING PULLED ON. WILL NOTIFY DOCTOR WHEN SHE ARRIVES.
--- NOTE | 2018-08-21 09:45 | NUR ---
NOTIFIED DR. MCPHERSON OF BLOOD WHEN WIPING AROUND THE DANG.
--- NOTE | 2018-08-21 16:00 | NUR ---
PATIENT IS TRANSFERED BACK TO BED WITH TWO ASSIST. DANG IS DCD PER DOCTOR ORDERS. SHE TOLERATES WELL. DRESSING IS CHANGED TO THE RIGHT ABDOMEN SURROUNDING THE CRIS DRAIN. VILLALOBOS DRAINAGE MODERATE AMOUNT ON OLD BANDAGE. THIS WAS SHOWN TO DR. HAMM WHEN HE ARRIVED. WHEN HE ARRIVED THERE WAS DROPS OF FLUID IN THE BULB OF THE CRIS DRAIN. POSITIONED ON HER LEFT SIDE PER HER REQUEST.
--- NOTE | 2018-08-21 19:32 | NUR ---
pt incontinent with urine. moderate amount of blood noted in brief. SUCTION DREDGE DUMPING SUPERVISOR will be notified. pt reports no pain. pt refused to turn when changing brief. no needs at thsi time. call light in reach
--- NOTE | 2018-08-21 20:09 | NUR ---
PT resting in bed A+Ox4, but reports feeling tired. reports no pain at this time. blood noted in brief- pt incontinent with urine. pt reports no SOA- on 2L. CRIS dressing CDI. SCDs on. repositioned at this time. . used IS to 500 ml 7x. no needs at this time. call light in reach
--- NOTE | 2018-08-21 21:00 | NUR ---
assisted pt to chair with walker, gatebelt and assist x2. reported feeling tired and in pain, after transfer- pt refused pain meds. no soa. changed brief at this time. pt incontinent of urnine. blood noted on brief. pt on 2L via NC. pt sat in chair for 1H, then was assisted to bed with gatebelt, walker, and assist of 2. pt on right sided, refused turning. denied needs. call light in reach.
[2018-08-22 00:43] VITALS: BP 134/55; PULSE 77; TEMP 97.1
--- NOTE | 2018-08-22 01:27 | NUR ---
pt resting throughout night. reports no pain at this time. on 2L via NC. SCD removed at 2200. SCD on at this time. refused to be turned. will monitor for incontinence. no needs at this time. call light in reach.
[2018-08-22 05:06] VITALS: BP 138/52; PULSE 74; TEMP 97.5
--- NOTE | 2018-08-22 06:15 | NUR ---
pt had a incontinent loose/liquid BM. incontinent with urine throughout the night. moderate amount of blood noted in brief. urology consult ordered. linens changed, sarai care provided. pt reports some pain with transfering to chair but denies need for prn meds. encouraged eating and activity throughout night. pt on 2L, vitals stable. SCD on. reports no needs at this time. call light in reach.
[2018-08-22 06:55] LABS: BASO % 0.1 % (0.0-2.0); EOS # 0.2 (0.0-0.7); EOS % 1.6 % (0-4.0); GRAN # 7.9 (1.4-6.5); LYMPH # 0.9 (1.2-3.4); LYMPH % 9.9 % (20.0-51.0); MEAN CELL VOLUME 87 fl (80.0-100.0); MEAN CORPUSCULAR HGB CONC 28 g/dl (33.0-37.0); MEAN PLATELET VOLUME 9.5 fl (7.4-10.4); MONO # 0.4 (0.1-0.6); MONO % 3.8 % (1.7-9.3); PLATELET COUNT 248 K/mm3 (130-400); RED BLOOD COUNT 2.93 M/mm3 (4.10-5.30); REDCELL DISTRIBUTION WIDTH-CV 17.6 % (11.5-14.5)
[2018-08-22 06:56] LABS: HEMATOCRIT 25.5 % (37.0-47.0); MEAN CORPUSCULAR HEMOGLOBIN 24 pg (27.0-31.0)
--- NOTE | 2018-08-22 07:02 | NUR ---
report given to EMIL Reynolds. pt sleeping at this time
[2018-08-22 07:08] LABS: CALCIUM 7.7 mg/dL (8.4-10.2); CREATININE, serum 2.24 (0.52-1.25); POTASSIUM 3.9 mmol/L (3.4-5.0)
[2018-08-22 07:41] VITALS: BP 150/75; PULSE 78; TEMP 97.7
--- NOTE | 2018-08-22 08:49 | NUR ---
PATIENT ASSESSMENT COMPLETED. SHE GETS UP TO THE CHAIR WITH ASSISTANCE AFTER GOING TO THE RESTROOM. SHE CONTINUES TO HAVE MODERATE AMOUNT OF BRIGHT RED BLOOD COMING FROM HER VAGINAL AREA. DEPENDS ON PATIENT. SHE IS ALERT AND ORIENTED AT THIS TIME. BREAKFAST HAS ARRIVED
[2018-08-22 12:02] VITALS: BP 145/57; PULSE 77; TEMP 97.7
--- NOTE | 2018-08-22 13:40 | NUR ---
PATIENT COMPLAINS OF RIGHT ABDOMEN ACHING. PRN TYLENOL 650MG GIVEN AT THIS TIME
--- NOTE | 2018-08-22 16:00 | NUR ---
PATIENT DEPENDS CHANGED THERE IS MODERATE AMOUNT OF BLOOD FOUND ALONG WITH URINE. SHE IS INCONTIENT OF URINE, DOESN'T KNOW THAT SHE HAS TO GO.
[2018-08-22 16:14] VITALS: BP 146/50; PULSE 75; TEMP 98
--- NOTE | 2018-08-22 18:00 | NUR ---
PATIENT IS CHANGED SHE CONTINUES TO BE INCONTIENT OF URINE WITH BLOOD NOTED IN THE DEPENDS. MODERATE AMOUNT FOUND.
--- NOTE | 2018-08-22 20:01 | NUR ---
Patient assessed at this time. Reported level 4 pain to right side. Patient laying on right side at this time. Encouraged to reposition, and stated that she had just recently turned onto that side. Dressing to right side of abdomen is CDI at this time. CRIS drain with scan brown drainage. LS diminished. Encouraged to get up and move around as much as bossible, and voiced understanding. Telemetry in place. Wearing SCDs to BLE. BLE wiht 2+ edema. No redness, warmth, or pain noted to BLE. Pedal pulses present and equal bilaterally. NS continues to peripheral IV to right hand. Site is without redness, warmth, swelling, and pain. Voices no needs or concerns at this time. Talking to daughter on phone at this time. Call light is within reach.
[2018-08-22 20:42] VITALS: BP 136/42; PULSE 74; TEMP 97.8
--- NOTE | 2018-08-22 21:10 | NUR ---
Given PRN APAP as requested for level 4 pain to right side.
[2018-08-23] VITALS (12 sets, daily range): BP systolic 114–151; BP diastolic 39–56; PULSE 66–79; TEMP 97.8–98.9
--- NOTE | 2018-08-23 00:23 | NUR ---
Patient resting in bed at this time. Repositioned self more onto her right side. Refusing to lay on left side. SCDs on. Wearing oxygen at 3 L/min via NC. Denies having SOB and dyspnea. Voices no needs or concerns at this time. Call light is within reach.
--- NOTE | 2018-08-23 03:05 | NUR ---
Resting in bed with eyes closed at this time. Call light is within reach.
--- NOTE | 2018-08-23 04:25 | NUR ---
Patient changed in bed. Incontinent of bladder. Hematuria present. Perineal hygiene care provided by staff. Blood bright red in color. Unable to tell if blood is comming from urethra or vagina. Denies having pain and discomfort to perineal area. Denies having burning, pain, and discomfort with urination. Continues to not want to turn onto left side. CRIS drain present and emptied. 10 ml brown drainage. Dressing to site is CDI. Requested and given PRN APAP for level 4 pain to right side. Resting in bed with eyes closed at this time. Call light is within reach.
--- NOTE | 2018-08-23 06:37 | NUR ---
NS continues at 100 ml/hr to peripheral IV to right hand. Continues to wear oxygen at 3 L/min via NC. Oxygen levels have been in the upper 90s. Encouraged to allow staff to decrease oxygen a little, but refused. Staff continues to encourage to reposition in bed but refuses. Dressing to right side of abdomen is CDI. CRIS drain patent. Did have level 4 pain to area, and was given PRN APAP. Resting in bed with eyes closed at this time. Continues to have hematuria. Call light is within reach.
[2018-08-23 07:52] LABS: EOS # 0.1 (0.0-0.7); EOS % 1.8 % (0-4.0); GRAN # 5.3 (1.4-6.5); GRAN % 75.6 % (42.2-75.2); LYMPH # 1.1 (1.2-3.4); LYMPH % 15.4 % (20.0-51.0); MEAN CELL VOLUME 88 fl (80.0-100.0); MEAN CORPUSCULAR HGB CONC 27 g/dl (33.0-37.0); MEAN PLATELET VOLUME 9.4 fl (7.4-10.4); MONO # 0.4 (0.1-0.6); MONO % 5.4 % (1.7-9.3); PLATELET COUNT 247 K/mm3 (130-400); REDCELL DISTRIBUTION WIDTH-CV 17.8 % (11.5-14.5)
--- NOTE | 2018-08-23 08:00 | NUR ---
PATIENT RESTING IN BED. PATIENT IS A&O. LOW BLOOD PRESSURE NOTED, OTHERWISE VSS. GENERALIZED WEAKNESS NOTED. SHALLOW BREATHING NOTED. ALL LUNG CABEZAS DIMINISHED UPON AUSCULTATION. PATIENT DENIES SHORTNESS OF BREATH. PATIENT STATES THAT SHE HAS A PRODUCTIVE COUGH WITH PALE GREEN SPUTUM. BOWEL SOUNDS ACTIVE ALL FOUR QUADRANTS. PATIENT TOLERATING DIET WITHOUT ANY COMPLAINTS OF N/V. POSITIVE PEDAL PULSES EQUAL BILATERALLY. MIDLINE ABDOMEN INCISION X1 DRESSED WITH BANDAID AND IS CD&I. RIGHT-SIDED ABDOMINAL CRIS DRAIN TO BULB SUCTION WITH SMALL AMOUNTS OF PURULENT DRAINAGE PRESENT IN BULB. DRAINAGE PRESENT ON CRIS INCISION DRESSING. CRIS INCISION SITE DRESSING REMOVED FOR ULTRASOUND. PURULENT, BLOOD-TINGED DRAINAGE PRESENT ON DRESSING. CRIS DRAIN INCISION SITE RE-DRESSED WITH DRAIN GAUZE, ABD PADS AND HYPAFIX. IV FLUIDS INFUSING TO RIGHT HAND IV. CALL LIGHT WITHIN REACH. PATIENT DENIES ANY OTHER NEEDS AT THIS TIME.
[2018-08-23 08:01] LABS: HEMATOCRIT 24.7 % (37.0-47.0); MEAN CORPUSCULAR HEMOGLOBIN 24 pg (27.0-31.0)
[2018-08-23 08:02] LABS: CALCIUM 7.7 mg/dL (8.4-10.2); CREATININE, serum 2.22 (0.52-1.25); HEMOGLOBIN 6.7 g/dl (12.5-16.0); POTASSIUM 3.9 mmol/L (3.4-5.0)
--- NOTE | 2018-08-23 08:08 | NUR ---
CRITICAL HGB OF 6.[address] MCPHERSON. NO ORDERS GIVEN AT THIS TIME.
--- NOTE | 2018-08-23 22:44 | NUR ---
PT RESTING IN BED A+OX4. REPORTS 5/10 PAIN, PRN MEDS GIVEN. CRIS DRESSING DCI. PT INCONINENT OF URINE, BLOOD NOTED IN BRIEF. PT ON 2l VIA NC. NO NEEDS AT THIS TIME. SHIFT ASSESSMENT COMPLETE. CALL LIGHT IN REACH
[2018-08-24] VITALS (8 sets, daily range): BP systolic 117–160; BP diastolic 48–70; PULSE 62–78; TEMP 97.6–98.2
--- NOTE | 2018-08-24 01:32 | NUR ---
PT REFUSED TO TURN TO LEFT SIDE. PT REPORTS ACHES IN RIGHT SHOULDER- GAVE TYLENOL. NO NEEDS AT THIS TIME. CALL LIGHT IN REACH
--- NOTE | 2018-08-24 06:01 | NUR ---
pt reports some pain throughout night in right shoulder, tylenol given pt reports relief. pt on 2L via NC O2- O2 sat 96%. CRIS drain dressing changed- site is slightly red. lap sites DCI. pt had incontinence stating " i just could not hold it". pt had loose stool x2. blood noted in urine. lines changed, sarai care provided. pt resting at this time. call light in reach
--- NOTE | 2018-08-24 06:45 | NUR ---
Reported on to primary RN [facility].
--- NOTE | 2018-08-24 07:18 | NUR ---
report given to EMIL Wall. pt reports no needs at this time
--- NOTE | 2018-08-24 07:30 | NUR ---
VSS. Assessment completed and charted. Auscultated diminished lung sounds bilaterally. Pt. on 2L per NC. CRIS drain to R side of abdomen. Dressing CDI. Minimal amount of dark green-brown drainage. Reported to primary RN [facility]. Tele on. INT to R hand and INT to L AC. Dressing CDI. Pt. reported 0/10 pain. Pt. comfortable in bed w/call light in reach and bed alarm on.
--- NOTE | 2018-08-24 08:40 | NUR ---
Assessment complete. Pt is AXO X3, denies having any pain at this time. Breathing is even but labored after repositioning in bed. LA nad RH INT's both flush easily, remain free of complications, and are CDI. CRIS drain to ABD has greenish-brown drainage to bulb suction; free of complications. Tele on. Pt is sitting up in the bed eating her breakfast at this time and she denies further needs. Call light within reach, will continue to monitor.
--- NOTE | 2018-08-24 09:00 | NUR ---
AM cares provided. Pt. incontinent of bowel and bladder. Gross hematuria noted to brief. Reported to primary RN [facility]. Pt. comfortable in bed w/call light in reach eating breakfast.
--- NOTE | 2018-08-24 11:15 | NUR ---
VSS. Assessment unchanged. CRIS drain discontinued per Dr. Lowery. Dressing CDI. IV to L AC infusing Zosyn @25mls/hr. Pt. reported 0/10 pain. Pt. comfortable in bed with call light in reach.
--- NOTE | 2018-08-24 11:43 | NUR ---
Reported off to primary RN [facility].
--- NOTE | 2018-08-24 14:00 | NUR ---
THis RN performed physical assessment. Pt denies SOB, wearing 2 L oxygen via NC. Lungs are slightly diminished throughout. Abdomen is soft, nontender, site where CRIS drain was pulled this am is free of redness, swelling, but gauze removed and purulent viscous drainage is oozing from site. Will continue to monitor. Pt denies pain. Denies cramping, nausea, does report 2-3 days of very soft formed dark stools. Pt was incontinent in brief, sarai care provided, and wolfgang blood wiped away and found in urine. PICC site is free of redness, swelling, blood return and easy flush x2. INT to LAC free of redness, swelling, some bruising at sight noted but no tenderness and flushes easily. Pt is NPO. No further needs, daughter at bedside, call light in reach
--- NOTE | 2018-08-24 14:01 | NUR ---
SW spoke with Thomas from [facility]. Patient has been accepted.
[2018-08-24 14:23] LABS: URINE PROTEIN:CREAT RATIO 1.17 (0.00-0.14)
[2018-08-24 14:24] LABS: BASO % 0.1 % (0.0-2.0); EOS # 0.2 (0.0-0.7); EOS % 1.8 % (0-4.0); GRAN # 6.4 (1.4-6.5); GRAN % 78.4 % (42.2-75.2); HEMATOCRIT 28.2 % (37.0-47.0); LYMPH # 1.1 (1.2-3.4); MEAN CELL VOLUME 87 fl (80.0-100.0); MEAN CORPUSCULAR HEMOGLOBIN 25 pg (27.0-31.0); MEAN CORPUSCULAR HGB CONC 28 g/dl (33.0-37.0); MEAN PLATELET VOLUME 9.5 fl (7.4-10.4); MONO # 0.4 (0.1-0.6); MONO % 5.4 % (1.7-9.3); PLATELET COUNT 244 K/mm3 (130-400); RED BLOOD COUNT 3.26 M/mm3 (4.10-5.30); REDCELL DISTRIBUTION WIDTH-CV 17.4 % (11.5-14.5)
[2018-08-24 14:28] LABS: CALCIUM 7.7 mg/dL (8.4-10.2); CREATININE, serum 2.01 (0.52-1.25); PHOSPHOROUS 3.6 mg/dL (2.5-4.5); POTASSIUM 3.6 mmol/L (3.4-5.0)
--- NOTE | 2018-08-24 19:32 | NUR ---
Through shift pt vitals remain stable, no SOB or pain. Bleeding continues from sarai area, when wiped she;ll have moderate wolfgang blood on tissue and soiling a brief she has small amount of blood. pt incontinent of urine and stool today. hgb increased to 8.0. She denies needs, PICC and INT free of complciations. Report given to Khadijah STEIN
--- NOTE | 2018-08-24 20:17 | NUR ---
PT RESTING IN BED EATING DINNER. REPORTS NO PAIN. NO SOA. PT ON 2L VIA NC. VITALS STABLE. CRIS REMOVED DURING DAY- DRESSING IS SATURATED, CHANGED AT THIS TIME. NO NEEDS AT THIS TIME. CALL LIGHT IN REACH
--- NOTE | 2018-08-24 20:18 | NUR ---
PICC flushed well. blood return noted.
--- NOTE | 2018-08-25 01:34 | NUR ---
pt incontinent of urine and stool at this time. Post CRIS dressing saturated with purulent viscous drainage, dressing changed at this time. call light in reach. pt reports no needs at this time.
[2018-08-25 04:05] VITALS: BP 138/44; PULSE 74; TEMP 98
--- NOTE | 2018-08-25 04:37 | NUR ---
changed post CRIS dressing at this time- saturated with purulent viscous drainage. pt incontinent of urine at this time. brief changed. blood/ blood clots noted in brief. no pain. pt moves independently in bed- refused to be turned to left side or back. no needs at this time. call light in reach.
--- NOTE | 2018-08-25 05:20 | NUR ---
pt had an uneventful night. incntinent of urine x4 and BM x1. sarai care provided. post lucinda drain dressing changed 3x. reported some abd pain- tylenol given and reported relief. pt moved independently in bed, refuses to be turned on left side or back. pt on 2L via NC. vitals stable. no needs at this time. call light in reach
[2018-08-25 05:55] LABS: EOS # 0.1 (0.0-0.7); EOS % 1.9 % (0-4.0); GRAN # 4.8 (1.4-6.5); GRAN % 74.3 % (42.2-75.2); LYMPH # 1.1 (1.2-3.4); LYMPH % 16.6 % (20.0-51.0); MEAN CELL VOLUME 88 fl (80.0-100.0); MEAN CORPUSCULAR HGB CONC 29 g/dl (33.0-37.0); MEAN PLATELET VOLUME 9.5 fl (7.4-10.4); MONO # 0.4 (0.1-0.6); MONO % 6.1 % (1.7-9.3); PLATELET COUNT 233 K/mm3 (130-400); REDCELL DISTRIBUTION WIDTH-CV 17.6 % (11.5-14.5)
[2018-08-25 06:05] LABS: HEMATOCRIT 27.2 % (37.0-47.0); HEMOGLOBIN 7.8 g/dl (12.5-16.0); MEAN CORPUSCULAR HEMOGLOBIN 25 pg (27.0-31.0)
[2018-08-25 06:15] LABS: CALCIUM 7.8 mg/dL (8.4-10.2); CREATININE, serum 1.97 (0.52-1.25); POTASSIUM 3.5 mmol/L (3.4-5.0)
--- NOTE | 2018-08-25 06:45 | NUR ---
Reported on to primary RN
--- NOTE | 2018-08-25 07:13 | NUR ---
report given to EMIL Call. pt reports no needs
--- NOTE | 2018-08-25 07:30 | NUR ---
VSS. Assessment completed and charted. Pt. reported 0/10 pain. Diminished lung sounds bilaterally. Pt. on 2L NC. Educated importance of using IS. CRIS drain removed on 08/24, noted serosangious drainage to dressing. CRIS site dressing changed. Tele in place. PICC in R upper arm, dressing CDI. Noted gross hematuria to brief at this time. Hygiene cares provided. Pt. comfortable in bed w/call light in reach.
[2018-08-25 07:45] VITALS: BP 149/48; PULSE 71; TEMP 97.9
[2018-08-25 09:54] LABS: URINE PROTEIN:CREAT RATIO 2.38 (0.00-0.14)
--- NOTE | 2018-08-25 10:00 | NUR ---
Completed assessment. [employer] [facility] student nurse Maida completed her assessment. Agreed with her assessment. Pt denies any pain. Breathing even and unlabored. Tegaderm dressing changed, small amount of yellow drainage noted. Call light in reach.
[2018-08-25] MEDS ORDERED: ROCEPHIN VIA1 G/VIAL IV (10:44)
[2018-08-25] MEDS ORDERED: DIFLUCAN200 MG PO (10:57)
[2018-08-25] MEDS ORDERED: FLAGYL500 MG PO (10:57)
[2018-08-25 10:59] VITALS: BP 139/50; PULSE 75; TEMP 98.7
[2018-08-25] MEDS ORDERED: TYLENOL 325MG325 MG PO (10:59)
[2018-08-25] MEDS ORDERED: BD POSIFLUSH SF10 ML IV (11:00)
--- NOTE | 2018-08-25 11:15 | NUR ---
VSS. Assessment unchanged. Pt. comfortable in bed w/call light in reach.
--- NOTE | 2018-08-25 12:01 | NUR ---
Reported off to primary RN
--- NOTE | 2018-08-25 13:21 | NUR ---
ROLAN attended clinical rounds. Patient will discharge today to [facility] for intermediate, PT and OT. ROLAN faxed discharge orders and is waiting for Thomas from [facility] to contact ROLAN with a transporation time.
[2018-08-25 15:00] VITALS: BP 139/50; PULSE 75; TEMP 98.7
--- NOTE | 2018-08-25 15:21 | NUR ---
ROLAN informed that patient would like to add her other daughter on her DPOA. ROLAN and KANCHAN met with patient family to witness signature. Patient signed and provided original and 4 copies. ROLAN also placed an updated DPOA on the chart. Patient will discharge to [facility] for detention, PT and OT.
--- NOTE | 2018-08-25 15:45 | NUR ---
[facility] transport arrived. Pt had all belongings. All questions answered.
== END 2018-08-25 15:45 | disposition home or self-care (01) | DRG 854 ==
LOC: COL.ER 18:00 → MEDICAL 20:14
PROVIDERS: Emergency Medicine; Family Medicine; Hospitalist; Internal Medicine; Nurse Practitioner; Nurse Practitioner Family; Physician Assistant; Surgery; ADMIT Internal Medicine
PROC: 0FC44ZZ Extirpation of Matter from Gallbladder, Percutaneous Endoscopic Approach (ICD-10-PCS; principal; 2018-08-17 11:00)
PROC: 0TJB8ZZ Inspection of Bladder, Via Natural or Artificial Opening Endoscopic (ICD-10-PCS; 2018-08-24)
DX: A41.9 Sepsis, unspecified organism (principal); K81.0 Acute cholecystitis; K82.A1 Gangrene of gallbladder in cholecystitis; N17.9 Acute kidney failure, unspecified; N39.0 Urinary tract infection, site not specified; J96.11 Chronic respiratory failure with hypoxia; J44.1 Chronic obstructive pulmonary disease with (acute) exacerbation; D62 Acute posthemorrhagic anemia; E87.2 Acidosis; J98.11 Atelectasis; I48.91 Unspecified atrial fibrillation; I11.0 Hypertensive heart disease with heart failure; I50.9 Heart failure, unspecified; R59.0 Localized enlarged lymph nodes; R31.0 Gross hematuria; N93.9 Abnormal uterine and vaginal bleeding, unspecified; R80.9 Proteinuria, unspecified; Z79.01 Long term (current) use of anticoagulants; Z99.81 Dependence on supplemental oxygen; Z87.891 Personal history of nicotine dependence
CPT/HCPCS: 99222-AI; 99232-AI; 99233-AI; 99239; A4216; A9284; C1751; J0330; J0696; J1450; J1650; J1885; J1940; J2405; J2543; J2704; J2930; J3010; J3370; J7030; J7050; J7120; P9016; Q9967

== ENCOUNTER 2018-11-02 17:24 | Emergency (ER) | payer MEDICAID ==
[~2018-11-02] VITALS: Ht 154.9 cm; Wt 92.3 kg
[~2018-11-02 17:24] MED LIST changes: +BD POSIFLUSH SF10 ML IV; +DIFLUCAN200 MG PO; +FLAGYL500 MG PO; +ROCEPHIN VIA1 G/VIAL IV; +TYLENOL 325MG325 MG PO
[2018-11-02 17:29] VITALS: TEMP 98.6
[2018-11-02 18:23] LABS: BASO % 0.1 % (0.0-2.0); EOS # 0.2 (0.0-0.7); EOS % 2.5 % (0-4.0); GRAN # 7.3 (1.4-6.5); GRAN % 75.9 % (42.2-75.2); LYMPH # 1.4 (1.2-3.4); LYMPH % 14.8 % (20.0-51.0); MEAN CELL VOLUME 93 fl (80.0-100.0); MEAN CORPUSCULAR HGB CONC 29 g/dl (33.0-37.0); MEAN PLATELET VOLUME 9.3 fl (7.4-10.4); MONO # 0.6 (0.1-0.6); MONO % 6.4 % (1.7-9.3); PLATELET COUNT 199 K/mm3 (130-400); RED BLOOD COUNT 3.66 M/mm3 (4.10-5.30); REDCELL DISTRIBUTION WIDTH-CV 15.2 % (11.5-14.5)
[2018-11-02 18:26] LABS: HEMATOCRIT 33.9 % (37.0-47.0); HEMOGLOBIN 9.9 g/dl (12.5-16.0); MEAN CORPUSCULAR HEMOGLOBIN 27 pg (27.0-31.0)
[2018-11-02 18:28] LABS: INR 0.9 (0.8-3.0); PROTHROMBIN TIME 10.4 SECONDS (9.7-12.8)
[2018-11-02 18:32] LABS: COLLECTION METHOD CLEAN CATCH
[2018-11-02 18:38] LABS: ALANINE AMINOTRANSFERASE 12 U/L (9-52); ALBUMIN 3.8 gm/dL (3.5-5.0); ALKALINE PHOSPHATASE 90 U/L (50-136); ANION GAP 7 mmol/L (7-16); AST,SGOT 13 U/L (15-37); BILIRUBIN,TOTAL 0.6 mg/dL (0.0-1.0); BLOOD UREA NITROGEN 18 mg/dL (7-17); CALCIUM 9.5 mg/dL (8.4-10.2); CARBON DIOXIDE 39 mmol/L (22-30); CHLORIDE 99 mmol/L (98-107); CREATININE, serum 0.67 (0.52-1.25); GLUCOSE 107 mg/dL (74-106); POTASSIUM 3.9 mmol/L (3.4-5.0); SODIUM 145 mmol/L (137-145); TOTAL PROTEIN 7.2 gm/dL (6.4-8.2)
[2018-11-02 18:40] LABS: PH 7 (5-8); SQUAMOUS EPITHELIAL None Seen /hpf; URINE APPEARANCE Clear; URINE BACTERIA None Seen /hpf; URINE BILIRUBIN Negative (NEGATIVE); URINE BLOOD Negative (NEGATIVE); URINE COLOR Yellow; URINE GLUCOSE Negative (NEGATIVE); URINE KETONE Negative (NEGATIVE); URINE LEUKOCYTE ESTERASE 2+ (NEGATIVE); URINE NITRATE Negative (NEGATIVE); URINE PROTEIN(semi-quant) Negative (NEGATIVE); URINE UROBILINOGEN Negative (NEGATIVE)
[2018-11-02 18:43] LABS: ACETAMINOPHEN < 10 ug/mL (10-30); ALCOHOL(ethanol),MEDICAL < 10 mg/dL; SALICYLATE < 1.0 mg/dL
[2018-11-02 18:44] LABS: TRICYCLIC ANTIDEPRESS URINE NEGATIVE
[2018-11-02 19:19] LABS: ARTERIAL BLD GAS O2 SATURATION 96.3 % (92-100); ARTERIAL BLD GAS TCO2 CT 40.3; ARTERIAL BLOOD GAS BASE EXCESS 10.6 (-2-2); ARTERIAL BLOOD GAS HCO3 38.2 meq/L (22-26); ARTERIAL BLOOD GAS pH 7.36 (7.35-7.45)
[2018-11-02] MEDS ORDERED: OMNICEF 300MG300 MG PO (19:53)
[2018-11-02 20:34] LABS: ARTERIAL BLOOD GAS PCO2 69.5 mmHg (35-45)
[2018-11-02 20:35] VITALS: BP 140/68; PULSE 77
== END 2018-11-02 20:35 | disposition home or self-care (01) ==
LOC: COL.ER 17:24
PROVIDERS: Emergency Medicine
DX: F29 Unspecified psychosis not due to a substance or known physiological condition (principal); N39.0 Urinary tract infection, site not specified; E87.2 Acidosis; F23 Brief psychotic disorder; E11.9 Type 2 diabetes mellitus without complications; I48.91 Unspecified atrial fibrillation; J44.9 Chronic obstructive pulmonary disease, unspecified; Z79.51 Long term (current) use of inhaled steroids